=== PATIENT | male | born 1975 | race Caucasian/White ===

== ENCOUNTER 2024-01-29 10:38 | Emergency (ER) | payer OTHER ==
[2024-01-29 10:55] VITALS: BP 131/90; PULSE 72; RESP 18; TEMP 97.2
--- NOTE | 2024-01-29 11:14 | ERPHSYRPT ---
- History of Present Illness Time Seen by Provider: 01/29/24 11:00 Source: patient Exam Limitations: no limitations Patient Subjective Stated Complaint: pt here for pain to left knee for a week. no known injury, Triage Nursing Assessment: pt alert, walked in, no limp, resp easy , skin w/d/p. no swelling noted Physician History: 48-year-old male presents to emergency department for evaluation of pain to the medial aspect of the left knee. Patient states the area has gotten progressively sore over the past couple weeks. Patient recently moved up to [place] from [place]. No falls or blunt trauma. Pain worse with weightbearing pain improved with rest. Patient reports arthritis in the contralateral right knee. However left knee has been asymptomatic up until the last couple weeks. Patient otherwise feels well. No associated foot ankle hip or back pain. Patient voices no other complaints or concerns at this time. Portions of this note were created with voice recognition technology. There may be grammatical, spelling, punctuation or sound alike errors Timing/Duration: week(s) Severity: moderate Modifying Factors: Improves With: movement Associated Symptoms: denies symptoms Allergies/Adverse Reactions: No Known Drug Allergies Allergy (Unverified 01/29/24 10:44) Hx Tetanus, Diphtheria Vaccination/Date Given: No Hx Influenza Vaccination/Date Given: Yes Hx Pneumococcal Vaccination/Date Given: No Immunizations Up to Date: Yes Travel Risk - International Travel Have you traveled outside of the country in past 3 weeks: No - Emerging Infectious Disease Are you exhibiting symptoms associated with any current EIDs: No - Review of Systems Constitutional: No Symptoms, No Fever, No Chills Eyes: No Symptoms Ears, Nose, & Throat: No Symptoms Respiratory: No Symptoms, No Cough, No Dyspnea Cardiac: No Symptoms, No Chest Pain, No Edema, No Syncope Abdominal/Gastrointestinal: No Symptoms, No Abdominal Pain, No Nausea, No Vomiting, No Diarrhea Genitourinary Symptoms: No Symptoms, No Dysuria Musculoskeletal: No Symptoms, No Back Pain, No Neck Pain Skin: No Symptoms, No Rash Neurological: No Symptoms, No Dizziness, No Focal Weakness, No Sensory Changes Psychological: No Symptoms Endocrine: No Symptoms Hematologic/Lymphatic: No Symptoms Immunological/Allergic: No Symptoms All Other Systems: Reviewed and Negative - Past Medical History Pertinent Past Medical History: No - Past Surgical History Past Surgical History: No - Social History Smoking Status: Former smoker Exposure to second hand smoke: No Drug Use: none - Social Determinants of Health Will the patient participate in the screening: Yes Do you worry about a steady place to live?: No Do you have any problems with any of the following?: No known problems In the past 12 months,have you had to go without utilities?: No Transportation Issues: No Has anyone in your support network made you feel unsafe?: No Have you or anyone in your house had to go without enough: No - Nursing Vital Signs Nursing Vital Signs: Initial Vital Signs Pulse Rate 84 01/29/24 10:45 Respiratory Rate 18 01/29/24 10:45 Blood Pressure 131/90 01/29/24 10:45 O2 Sat by Pulse Oximetry 98 01/29/24 10:45 Pain Scale Pain Intensity 8 - Physical Exam General Appearance: no apparent distress, alert Eye Exam: PERRL/EOMI, eyes nml inspection Ears, Nose, Throat Exam: normal ENT inspection, moist mucous membranes Neck Exam: normal inspection, full range of motion Respiratory Exam: normal breath sounds, airway intact, No respiratory distress Cardiovascular Exam: regular rate/rhythm, normal heart sounds, normal peripheral pulses Gastrointestinal/Abdomen Exam: soft, normal bowel sounds, No tenderness, No mass Back Exam: normal inspection, normal range of motion, other, No CVA tenderness, No vertebral tenderness Extremity Exam: normal inspection, normal range of motion, pelvis stable, other (Negative Homans' sign. All knee ligaments are stable. Extensor mechanism intact. Tenderness to palpation over the medial collateral ligament. No obvious swelling. Overlying soft tissue intact. No signs of trauma no cellulitis.) Neurologic Exam: alert, oriented x 3, cooperative, normal mood/affect, sensation nml, No motor deficits Skin Exam: normal color, warm, dry, No rash Lymphatic Exam: No adenopathy SpO2 Interpretation: normal SpO2: 97 O2 Delivery: Room Air - Course Nursing assessment & vital signs reviewed: Yes - Radiology Exams Knee X-ray Interpretation: Interpreted by me (No fracture or dislocation early degenerative changes, fabella) Ordered Tests: Active Orders 24 hr Category Date Time Status KNEE (3 VIEWS) Stat Exams 01/29/24 11:07 Completed Medication Summary Discontinued Medications Generic Name Dose Route Start Last Admin Trade Name Freq PRN Reason Stop Dose Admin Ketorolac Tromethamine 30 mg 01/29/24 11:13 01/29/24 11:24 Ketorolac Tromethamine 30 Mg/Ml Inj IM 01/29/24 11:14 30 mg STAT ONE Administration Ketorolac Tromethamine Confirm 01/29/24 11:23 Ketorolac Tromethamine 30 Mg/Ml Inj Administered 01/29/24 11:24 Dose 30 mg .ROUTE .STK-MED ONE - Progress Progress: improved Progress Note: 48-year-old male presents to emergency department for evaluation of pain to the medial aspect of the left knee. Physical exam reveals some tenderness along the medial collateral ligament. Physical exam otherwise unremarkable. The involved extremities neurovascular intact distally compartments are soft cap refill less than 2 seconds. X-ray negative for acute findings. Patient received IM Toradol prescription for Toradol forwarded to patient's pharmacy. Vaughn wrap applied. Patient declined crutches. Patient referred to orthopedic clinic for follow-up. Patient pain improved. Patient voiced no other complaints or concerns. Patient agrees to follow-up with orthopedic clinic as discussed. Portions of this note were created with voice recognition technology. There may be grammatical, spelling, punctuation or sound alike errors Complexity of problem addressed is moderate acute complicated. No critical care time. Complex of data reviewed and analyzed is moderate. Dr. Pastrana independently reviewed the x-ray of the involved knee. Formal read later provided by radiologist. No fracture or dislocation. Risk of complication and or risk of morbidity/mortality of patient management is moderate. A prescription for Toradol forwarded to patient's pharmacy. Vital stable. Time spent to discharge patient is approximately 10 minutes. Plan of care established for shared decision making. No social determinants of health present to impede follow-up. Portions of this note were created with voice recognition technology. There may be grammatical, spelling, punctuation or sound alike errors 01/29/24 13:00 Counseled pt/family regarding: diagnosis, need for follow-up, rad results - Departure Departure Disposition: Home Clinical Impression: Knee sprain, Left medial knee pain Condition: Stable Critical Care Time: No Referrals: DOCTOR,NO FAMILY [Primary Care Provider] - Follow up/PCP as directed NARGIS CRYSTAL MD [ACTIVE STAFF] - Follow up/PCP as directed Instructions: Knee Sprain (DC) Additional Instructions: Discharge/Care Plan TEMO GRAY was seen on 01/29/24 in the Emergency Room. The patient was counseled regarding Diagnosis,Lab results, Imaging studies, need for follow up and when to return to the Emergency Room. Prescriptions given: Discharge Note I have spoken with the patient and/or caregivers. I have explained the patient's condition, diagnosis and treatment plan based on the information available to me at this time. I have answered the patient's and/or caregiver's questions and addressed any concerns. The patient and/or caregivers have as good understanding of the patient's diagnosis, condition and treatment plan as can be expected at this point. The vital signs have been stable. The patient's condition is stable and appropriate for discharge from the emergency department. The patient will pursue further outpatient evaluation with the primary care physician or other designated or consulting physician as outlined in the discharge instructions. The patient and/or caregivers are agreeable to this plan of care and follow-up instructions have been explained in detail. The patient and/or caregivers have received these instruction. The patient/and or caregivers are aware that any significant change in condition or worsening of symptoms should prompt an immediate return to this or the closest emergency department or call 911. Prescriptions: Ketorolac Trometh 10 mg Tab [TORAdol 10 MG TABLET] 10 mg PO TID 5 Days #15 tablet Outpatient Orders: Ortho Referral Time Frame: 1 Day, Facility: [facility], Location: [facility]
[2024-01-29] MEDS ORDERED: TORAdol 30 mg Injection ONE (11:23)
[2024-01-29] MEDS: TORAdol 30 mg Injection IM ONE (11:24)
--- NOTE | 2024-01-29 12:07 | XRAY ---
Indication: Pain. No known injury. Comparison: None 3 view left knee demonstrates incidental small posterior fabella. Query old proximal fibula shaft fracture. No other bony, articular, or soft tissue abnormalities.
[2024-01-29 13:03] VITALS: O2SAT 97
== END 2024-01-29 11:55 | disposition home or self-care (01) ==
LOC: ED 10:38
DX: S83.92XA Sprain of unspecified site of left knee, initial encounter (principal); M25.562 Pain in left knee; Z79.899 Other long term (current) drug therapy
CPT/HCPCS: 73562; 96372; 99283; J1885